=== PATIENT | female | born 1955 | race Caucasian/White ===

== ENCOUNTER 2017-01-29 00:55 | Emergency (ER) | payer MEDICAID ==
[~2017-01-29] VITALS: Ht 165.1 cm; Wt 74.7 kg
[2017-01-29 00:56] VITALS: BP 160/101
[2017-01-29] MEDS ORDERED: LIDOCAINE 1%, 20ML ONE (01:26)
[2017-01-29] MEDS ORDERED: BUPIVACAINE 0.25% ONE (01:27)
[2017-01-29] MEDS ORDERED: LIDOCAINE 1%, 20ML SQ ONE (01:30)
[2017-01-29] MEDS ORDERED: BUPIVACAINE 0.25% INFIL ONE (01:30)
== END 2017-01-29 01:51 | disposition home or self-care (01) ==
LOC: ED 01:45
DX: K02.9 Dental caries, unspecified (principal); F17.210 Nicotine dependence, cigarettes, uncomplicated
CPT/HCPCS: 64400